=== PATIENT | male | born 1990 | race African-American/Black ===

== ENCOUNTER 2017-07-30 12:33 | Emergency (ER) | payer OTHER ==
--- NOTE | 2017-07-30 12:53 | PDOC ---
History of Present Illness - General Stated Complaint: EYE REDNESS Time Seen by Provider: 07/30/17 12:40 History Source: Patient Exam Limitations: No Limitations - History of Present Illness Initial Comments: 07/30/17 12:48 CHIEF COMPLAINT: Redness and irritation of both eyes since yesterday HISTORY OF PRESENT ILLNESS: This is a healthy 27-year-old man who works at the [employer]. He started having redness and itching with mucus production in both eyes yesterday. Today he continues to have the same symptoms. There is no change in vision. He wears glasses but does not use contact lenses. This morning he had some increased mucus production from both eyes. There is no sore throat. There is no fever. There is no cough. There is no skin rash. REVIEW OF SYSTEMS: GENERAL/CONSTITUTIONAL: No fever or chills. No weakness. No weight change. HEAD, EYES, EARS, NOSE AND THROAT: No change in vision. + Positive redness and mucus production in both eyes. No sore throat or earache. CARDIOVASCULAR: No chest pain or shortness of breath. RESPIRATORY: No cough, wheezing, or hemoptysis. GASTROINTESTINAL: No nausea, vomiting, diarrhea or constipation. No rectal bleeding. GENITOURINARY: No dysuria, frequency, or change in urination. MUSCULOSKELETAL: No joint or muscle swelling or pain. No neck or back pain. SKIN AND BREASTS: No rash or easy bruising. NEUROLOGIC: No headache, vertigo, loss of consciousness, or loss of sensation. PSYCHIATRIC: No depression or anxiety. ENDOCRINE: No increased thirst. No abnormal weight change. HEMATOLOGIC/LYMPHATIC: No anemia, easy bleeding, or history of blood clots. ALLERGIC/IMMUNOLOGIC: No hives or skin allergy. No latex allergy. Past History - Past Medical History Allergies/Adverse Reactions: Allergies Allergy/AdvReac Type Severity Reaction Status Date / Time No Known Allergies Allergy Verified 07/30/17 13:09 Home Medications: Ambulatory Orders Moxifloxacin HCl [Vigamox 0.5% Eye Drops -] 1 drop OU TID PRN #1 bottle Diabetes: No HTN: No *Physical Exam - Physical Exam Comments: 07/30/17 12:51 GENERAL: The patient is awake, alert, and fully oriented, in no acute distress. HEAD: Normal with no signs of trauma. EYES: Lids and lashes are normal bilaterally. The vision is normal. The conjunctiva is red and injected with no visible mucus discharge at this time. Corneas, irises, pupillary reaction, and fundus is normal. EXTREMITIES: Normal range of motion, no edema. NEUROLOGICAL: Normal speech, normal gait. PSYCH: Normal mood, normal affect. SKIN: Warm, Dry, normal turgor, no rashes or lesions noted. Medical Decision Making - Medical Decision Making 07/30/17 12:52 Patient presents with uncomplicated conjunctivitis in both eyes. There is no change in vision. 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 The conjunctivitis could be from viral more likely than bacterial etiology. Patient will be given antibiotic drops for prophylaxis of bacterial infection. He has been advised to follow-up with ophthalmology in 48 hours if symptoms are not resolving. *DC/Admit/Observation/Transfer Diagnosis at time of Disposition: Conjunctivitis Qualifiers: Conjunctivitis type: acute Acute conjunctivitis type: viral Laterality: bilateral Qualified Code(s): B30.9 - Viral conjunctivitis, unspecified - Discharge Dispostion Disposition: HOME Condition at time of disposition: Stable Admit: No - Prescriptions Prescriptions: Moxifloxacin HCl [Vigamox 0.5% Eye Drops -] 1 drop OU TID PRN #1 bottle PRN Reason: eye infection - Referrals Referrals: Chuckie Calderón MD [Staff Physician] - 2 Days - Patient Instructions Printed Discharge Instructions: DI for Conjunctivitis Additional Instructions: You were evaluated today for redness in your eyes. The diagnosis is conjunctivitis, most commonly caused by a viral infection, less commonly by a bacterial infection. Wash your hands frequently to avoid transmitting the infection to anyone else. Avoid touching your eyes as much as possible. Because this infection is contagious, you cannot return to work until the redness improves. This typically takes a couple of days. Apply a warm washcloth to your eyes as needed for irritation. Use Vigamox eyedrops 3 times a day, one drop in each eye until the symptoms improve. Follow up with the mat cleaning machine operator, Dr. Chuckie Calderón, if the symptoms are not improving in 48 hours. Return to the emergency department for any severe or progressive symptoms.
[2017-07-30 13:09] VITALS: BP 117/73; PULSE 80; TEMP 98.5; BMI 21.2
== END 2017-07-30 13:24 | disposition home or self-care (01) ==
LOC: FER 12:33
DX: B30.9 Viral conjunctivitis, unspecified (principal)
CPT/HCPCS: 99281-25